=== PATIENT | male | born 1980 | race Caucasian/White ===

== ENCOUNTER 2024-10-24 11:22 | Emergency (ER) | payer BC, SELFPAY ==
--- OUTSIDE RECORDS SUMMARY | 2024-10-24 11:24 | XMS_ITS | Data Portability ---
Author Organization [place] - [facility], autoContract - [facility] Address [address] [place] [address] Assessment Encounter Date Assessment Date Assessment LastModified by Organization Details LastModified Time 07/09/2024 07/09/2024 ASSESSMENT: Patient is a good candidate for conservative care and the prognosis is for a favorable outcome that achieves the patients' goals. We discussed etiology, activity modifications, home care, and other treatment options. Initially, it is recommended that the patient receive in-office treatment 1 times per week for 8 weeks at which time a re-evaluation will be performed to determine an appropriate change in plan. Initially, treatment will focus on joint manipulation to restore range of motion and reduce pain. We will slowly progress to therapeutic exercises and activities to improve function, strength, and stability may also be used as warranted. If the patient is not responding as expected, more invasive procedures will be discussed along with a referral. All considerations above were discussed with the patient and questions answered to satisfaction. If the patient should have any additional questions, or should the condition evolve or worsen, the patient should not hesitate to contact our office. [email or web address] Not available 07/09/2024 13:45:54 07/14/2024 07/14/2024 ASSESSMENT: Patient is a good candidate for conservative care and the prognosis is for a favorable outcome that achieves the patients' goals. We discussed etiology, activity modifications, home care, and other treatment options. Initially, it is recommended that the patient receive in-office treatment 1 times per week for 8 weeks at which time a re-evaluation will be performed to determine an appropriate change in plan. Initially, treatment will focus on joint manipulation to restore range of motion and reduce pain. We will slowly progress to therapeutic exercises and activities to improve function, strength, and stability may also be used as warranted. If the patient is not responding as expected, more invasive procedures will be discussed along with a referral. All considerations above were discussed with the patient and questions answered to satisfaction. If the patient should have any additional questions, or should the condition evolve or worsen, the patient should not hesitate to contact our office. segundo Not available 07/14/2024 13:07:56 07/16/2024 07/16/2024 ASSESSMENT: Patient is a good candidate for conservative care and the prognosis is for a favorable outcome that achieves the patients' goals. We discussed etiology, activity modifications, home care, and other treatment options. Initially, it is recommended that the patient receive in-office treatment 1 times per week for 8 weeks at which time a re-evaluation will be performed to determine an appropriate change in plan. Initially, treatment will focus on joint manipulation to restore range of motion and reduce pain. We will slowly progress to therapeutic exercises and activities to improve function, strength, and stability may also be used as warranted. If the patient is not responding as expected, more invasive procedures will be discussed along with a referral. All considerations above were discussed with the patient and questions answered to satisfaction. If the patient should have any additional questions, or should the condition evolve or worsen, the patient should not hesitate to contact our office. [email or web address] Not available 07/16/2024 12:59:04 07/21/2024 07/21/2024 ASSESSMENT: Patient is a good candidate for conservative care and the prognosis is for a favorable outcome that achieves the patients' goals. We discussed etiology, activity modifications, home care, and other treatment options. Initially, it is recommended that the patient receive in-office treatment 1 times per week for 8 weeks at which time a re-evaluation will be performed to determine an appropriate change in plan. Initially, treatment will focus on joint manipulation to restore range of motion and reduce pain. We will slowly progress to therapeutic exercises and activities to improve function, strength, and stability may also be used as warranted. If the patient is not responding as expected, more invasive procedures will be discussed along with a referral. All considerations above were discussed with the patient and questions answered to satisfaction. If the patient should have any additional questions, or should the condition evolve or worsen, the patient should not hesitate to contact our office. [email or web address] Not available 07/21/2024 15:30:28 07/26/2024 07/26/2024 ASSESSMENT: Patient is a good candidate for conservative care and the prognosis is for a favorable outcome that achieves the patients' goals. We discussed etiology, activity modifications, home care, and other treatment options. Initially, it is recommended that the patient receive in-office treatment 1 times per week for 8 weeks at which time a re-evaluation will be performed to determine an appropriate change in plan. Initially, treatment will focus on joint manipulation to restore range of motion and reduce pain. We will slowly progress to therapeutic exercises and activities to improve function, strength, and stability may also be used as warranted. If the patient is not responding as expected, more invasive procedures will be discussed along with a referral. All considerations above were discussed with the patient and questions answered to satisfaction. If the patient should have any additional questions, or should the condition evolve or worsen, the patient should not hesitate to contact our office. [email or web address] Not available 07/26/2024 16:06:29 Plan of Treatment Reminders Order Date Submit Date Provider Last Modified By Organization Details Last Modified Time Details Appointments None recorded. Lab None recorded. Referral None recorded. Procedures None recorded. Surgeries None recorded. Imaging MRI, lumbar spine, w/o contrast 2023 024 [email or web address] Not available 4 14:12:46 XR, lumbosacral spine, 2 or 3 view 2023 024 [email or web address] Not available 4 14:12:46 MRI, lumbar spine, w/o contrast 2023 024 [email or web address] Not available 4 14:12:46 Medication Orders None recorded. Patient TargetsNo targets recorded. Patient InstructionsNo instructions recorded. Reason for Referral None Reported. Problems Name Problem SNOMED Code Status Onset Date Resolution Date Notes Provider Name and Address Organization Details Recorded Time Lumbar radiculopat hy 799896536 Active 2023 [facility] Zbigniew Michelle [place] [address], [place], [address], [facility] 4 10:44:06 Thoracic segmental dysfunction 567374266 Active 2023 [facility] Zbigniew Michelle NH [address], [place], [address], [place] [facility] 4 10:44:06 Lumbar segmental dysfunction 113797976 Active 2023 Sadi MichelleBLAINE, [place] [address], [place], [address], [place] [facility] 4 10:44:06 Somatic dysfunction of sacral spine 837182255 Active 2023 Sadi GurrolaTurney, [place] [address], [place], [address], [place] [facility] 4 10:44:06 Disorder of lumbar spine 505262515 Active 2023 [facility] Zbigniew [address], [place], [address], [place] [facility] 4 10:44:07 Lesion of lumbar spine 421273378 Active 2023 Sadi Coy [address], [place], [address], [place] [facility] 4 10:44:07 Spasm of muscle of lower back 7327207139921 9105 Active 2023 [facility] Zbigniew [address], [place], [address], [place] [facility] 4 10:44:07 Low back strain 866405611 Active 2023 [facility] Zbigniew Gurrola[address], [place], [address], [place] [facility] 4 10:44:10 Neck pain 06307385 Active [address], [place], [address], [place] [facility] 4 12:43:57 Low back pain 965862129 Active 2023 Mulugeta Beth, [address], [place], [address], [facility] 4 13:07:56 Problem Notes None recorded. Procedures Surgical History Date Name Laterality Status Provider Name and Address Organization Details Recorded Time 4 46291: Spinal manipulation , 3 to 4 regions completed Radhames Hurd [place] [address], [place], [address], [facility] 07/26/2024 16:06:28 4 71497: Spinal manipulation , 3 to 4 regions completed Sadi Michelle NH [address], [place], [address], [facility] 07/21/2024 15:30:28 4 73189: Spinal manipulation , 3 to 4 regions completed Radhames Hurd NH [address], [place], [address], [facility] 07/16/2024 12:59:29 4 38027: Spinal manipulation , 3 to 4 regions completed Mulugeta Beth NH [address], [place], [address], [facility] 07/14/2024 13:08:32 4 83187: Spinal manipulation , 3 to 4 regions completed Radhames Hurd [place] [address], [place], [address], [facility] 07/09/2024 13:45:54 4 01322: Spinal manipulation , 3 to 4 regions completed Sadi Zbigniew Viviana NH [address], [place], [address], [facility] 07/06/2024 12:09:56 Imaging Results None recorded. Procedure Notes None recorded. Medical Equipment None Reported. Medications Name Sig Start Date Stop Date Status Note LastModified by Organization Details LastModified Time azithromycin 250 mg tablet active Not Available Not Availabl e Not Available benzonatate 200 mg capsule active Not Available Not Availab le Not Available amoxicillin 500 mg tablet active Not Available Not Availabl e Not Available Vitals None Recorded Social History None recorded. Functional Status None recorded. Mental Status None recorded. Family History Nothing Reported. Medical History No medical history recorded. Past Encounters Encounter ID Performer Location Encounter Start Date Encounter Closed Date Diagnosis/Indication Diagnosis SNOMED-CT Code Diagnosis ICD10 Code Diagnosis Note [id number] Sadi Michelle DC [facility] & [address] [place] [address] 07/06/2024 10:40:57 07/06/2024 15:45:05 Somatic dysfunction of sacral spine 952452323 M99.04 Lumbar radiculopathy 128 804205 M54.16 Lumbar seg mental dysfunction 871401487 M99.03 Thoracic s egmental dysfunction 335457859 M99.02 Spasm of m uscle of lower back 5388701652 6350323 M62.830 [id number] Radhames Hurd DC [address] [place] [address] 07/09/2024 10:14:23 07/09/2024 14:12:45 Somatic dysfunction of sacral spine 090522921 M99.04 Lumbar seg mental dysfunction 714197476 M99.03 Thoracic s egmental dysfunction 772807896 M99.02 Spasm of m uscle of lower back 3629338155 0939053 M62.830 Lumbar radiculopathy 128 930910 M54.16 [id number] Mulugeta Beth DC [facility] & [address] [place] [address] 07/14/2024 12:57:50 07/14/2024 13:27:39 Lumbar segmental dysfunction 071492203 M99.03 Low back pain 671297105 M54.50 Somatic dy sfunction of sacral spine 052863463 M99.04 Thoracic s egmental dysfunction 506056489 M99.02 [id number] Radhames Hurd DC [facility] & [address] [place] [address] 07/16/2024 12:48:25 07/16/2024 13:07:12 Lumbar segmental dysfunction 953624160 M99.03 Low back pain 728836085 M54.50 Somatic dy sfunction of sacral spine 695368073 M99.04 Thoracic s egmental dysfunction 265298725 M99.02 [id number] Sadi Michelle DC [facility] [address] [facility] [address] 07/21/2024 14:54:18 07/21/2024 16:07:05 Lumbar segmental dysfunction 846412599 M99.03 Low back pain 061323911 M54.50 Somatic dy sfunction of sacral spine 975879636 M99.04 Thoracic s egmental dysfunction 371572542 M99.02 [id number] Radhames Hurd DC [facility] [address] [place] [address] 07/26/2024 15:58:42 07/26/2024 16:08:57 Lumbar segmental dysfunction 610287107 M99.03 Low back pain 244138162 M54.50 Somatic dy sfunction of sacral spine 861117090 M99.04 Thoracic s egmental dysfunction 787058942 M99.02 Health Concerns Section Related Observation LastModified by Organization Detai ls LastModified Time None Recorded Concern Status LastModified by Organization Details LastModified Time None Recorded Advance Directives Directive None Recorded Payers Encounter Date Sequence Insurance Name Policy Number Policy Ortega Covered Member ID Ortega Member ID Guarantor Name 07/09/2024 1 [employer] Shari Prisca [id number] [place] 07/14/2024 1 [employer] Shari Prisca [id number] [place] 07/16/2024 1 [employer] [place]ari [place] [id number] [place] 07/21/2024 1 [employer] Shari Prisca [id number] Jordy [place] 07/26/2024 1 [employer] Shari Prisca [id number] Jordy Prisca Notes Date Note Type Note Provider Name and Address Organization Details Recorded Time 07/09/2024 text/html HPI - Lumbar SpineReported bypatient.Location: left; With radiation to knee Quality:aching Severity:improving Timing:morning Aggravating Factors:standing Alleviating Factors:ice Radhames Hurd DC [address], [place], [address], [facility] 07/09/2024 14:00:40 07/14/2024 text/html HPI - Lumbar SpineReported bypatient.Location: left; With radiation to knee Quality:aching Severity:not changing Timing:morning Aggravating Factors:standing Alleviating Factors:ice Mulugeta Hallman Kirit, PHIL [address], [place], [address], [facility] 07/14/2024 13:09:02 07/16/2024 text/html HPI - Lumbar SpineReported bypatient.Location: left; With radiation to knee Quality:aching Severity:not changing Timing:morning Aggravating Factors:standing Alleviating Factors:ice Radhames Lloyd Hurd DC [address], [place], [address], [facility] 07/16/2024 12:59:53 07/21/2024 text/html HPI - Lumbar SpineReported bypatient.Location: left; with radiation to:; Radiates to his back. Quality:aching Severity:not changing Timing:morning Aggravating Factors:standing Alleviating Factors:ice Patient presents for continual care of his left hip pain that radiates into his back. Sadi Zbigniew Viviana, PHIL [address], [place], [address], [facility] 07/21/2024 15:31:56 07/26/2024 text/html HPI - Lumbar SpineReported bypatient.Location: left; with radiation to:; Radiates to his back. Quality:aching Severity:not changing Timing:morning Aggravating Factors:standing Alleviating Factors:ice Patient presents for continual care of his left hip pain that radiates into his back. Radhames Hurd DC [address], [place], [address], [facility] 07/26/2024 16:06:58
[2024-10-24 11:26] VITALS: BP 120/79; PULSE 115; RESP 16; TEMP 36.1; O2SAT 95; BMI 27.2
--- NOTE | 2024-10-24 11:31 | ED_ITS ---
HPI - General Adult General Date Seen: 10/24/24 Chief complaint: Cough Stated complaint: fever/bodyaches/SOB Time Seen by Provider: 10/24/24 11:23 History of Present Illness HPI narrative: 44 yo M presents to the ER today with concern for fever, chills, body ache cough. He began to get sick Friday, 6 days ago with fever and body aches. Beginning a couple of days ago he also had having worsening cough with coughing fits and trouble breathing. He had a virtual visit on Friday and was told that he probably had influenza. Symptoms started last Friday with body aches and leg ache and fatigue. He was generally feeling achy and run down in feverish Friday, Friday, Friday. He also had a fairly bad headache and 1 episode of vomiting Friday. No diarrhea. On started to feel perhaps marginally better but Friday got worse again and also developed cough. Cough has been largely nonproductive but occasionally productive of some pink tinged sputum. Temperatures have been running up and down but as high as 102.7. He had a nosebleed on Friday which he thinks is what caused the pink tinge. He had a virtual visit on Friday with a clinic through [facility] and was diagnosed empirically with influenza. Since he was outside the 48 hour window he was not prescribed any Tamiflu. He was told to come to the doctor if he had worsening trouble breathing or chest pain. His cough persisted through the weekend this morning he had more episodes of bad coughing spells,. In particular he had a bad coughing spell walking up the steps that made him short of breath. His noted that he looked pasty and that he is breathing rapidly. He did have sweats and chills overnight but does not have an objective fever this morning. He has no history of diabetes or immunosuppression. He has no history of asthma or lung disease. He is a nonsmoker. Per medical record he has a history of a left lower lobe pneumonia. He had been seen in the urgent care last June with a several day history of cough and body aches. Chest x-ray showed abnormal retrocardiac airspace opacities, concerning for focal consolidation and/or atelectasis. Related Data Previous Rx's ?Medication ?Instructions ?Recorded benzonatate 100 mg capsule 100 mg PO TID PRN cough #14 caps 10/24/24 doxycycline monohydrate 100 mg 100 mg PO BID #14 caps 10/24/24 capsule Allergies Allergy/AdvReac Type Severity Reaction Status Date / Time No Known Drug Allergies Allergy Verified 06/25/24 12:26 [facility] Social History Smoking Status: Never smoker How often do you have a drink containing alcohol: 2-4 times a month How many standard drinks containing alcohol do you have on a typical day: 1 or 2 AUDIT-C Alcohol total score: 2 Non-prescribed substance use: denies use service: No Exam Narrative: Exam Narrative: Constitutional: Appears well-developed and well-nourished. Alert. Conversant. Non toxic. Speaks full sentences. Breathing easily. HENT: Head: Atraumatic. Right ear: Mastoid, pinna, canal normal. Canal is filled with cerumen but I am able to see part of the TM, which looks normal Left ear: Mastoid, pinna, canal normal say for cerumen in the canal. Part of the TM is obscured by cerumen but visualized portion of the TM is normal Nose: Nose normal. Mouth/Throat: Oral mucosa is clear and moist. no trismus. Pharynx normal. Tonsils symmetric. No tonsillar enlargement, erythema, or exudate. Eyes: Conjunctivae normal. EOM normal. Pupils equal, round, and reactive to light. No scleral icterus. Neck: Normal range of motion. Neck supple. No tracheal deviation present. Cardiovascular: Normal rate, regular rhythm. No gallop. No friction rub. No murmur heard. Symmetric radial artery pulses Pulmonary/Chest: Effort normal. No stridor. Occasional nonproductive cough No respiratory distress. No wheezes. No rales. No rhonchi . No tenderness. Abdominal: Soft.No distension. No mass. No tenderness. No rebound. No guarding. Musculoskeletal: RUE: Normal range of motion. No tenderness. No deformity LUE: Normal range of motion. No tenderness. No deformity RLE: Normal range of motion. No edema. No tenderness. No deformity LLE: Normal range of motion. No edema. No tenderness. No deformity Lymph: No cervical adenopathy. Neurological: Alert and oriented to person, place, and time. Normal strength. CN II-VII intact. No sensory deficit. GCS eye subscore is 4. GCS verbal subscore is 5. GCS motor subscore is 6. Normal coordination Skin: Skin is warm and dry. No rash noted. No pallor. Normal capillary refill. Psychiatric: Normal mood. Normal affect. Const: Vital Signs, click to edit/add: Vital Signs - 24 hr 10/24/24 11:26 Temperature 96.9 F L Pulse Rate [Pulse Oximeter] 115 H Respiratory Rate 16 Blood Pressure [Ri t Upper Arm] 120/79 Pulse Oximetry 95 Oxygen Delivery Me thod Room Air Course Course ED Course: [id number] back and shows a right upper lobe pneumonia. Patient sitting up in bed breathing easily, drinking water. No complaints. No respiratory distress. I listened to his lungs again I still do not hear any obvious rales or wheezes or rhonchi in the right upper lobe, despite radiographic findings. Nonetheless with clinical presentation will treat for community-acquired pneumonia. Vital Signs Vital signs: Initial Vital Signs Temperature 96.9 F L 10/24/24 11:26 Temperature Source Temporal Artery Scan 10/24/24 11:26 Pulse Rate 115 H 10/24/24 11:26 Respiratory Rate 16 10/24/24 11:26 Blood Pressure 120/79 10/24/24 11:26 Blood Pressure Mean 92 10/24/24 11:26 Blood Pressure Position Sitting 10/24/24 11:26 Pulse Oximetry 95 10/24/24 11:26 Oxygen Delivery Method Room Air 10/24/24 11:26 Vital Signs Temperature 96.9 F L 10/24/24 11:26 Pulse Rate 115 H 10/24/24 11:26 Respiratory Rate 16 10/24/24 11:26 Blood Pressure 120/79 10/24/24 11:26 Pulse Oximetry 95 10/24/24 11:26 Oxygen Delivery Method Room Air 10/24/24 11:26 Temperature 96.9 F L 10/24/24 11:26 Pulse Rate 115 H 10/24/24 11:26 Respiratory Rate 16 10/24/24 11:26 Blood Pressure 120/79 10/24/24 11:26 Pulse Oximetry 95 10/24/24 11:26 Oxygen Delivery Method Room Air 10/24/24 11:26 Medical Decision Making MDM Narrative Medical decision making narrative: This patient presents for evaluation of cough, trouble breathing associated with fever, chills, body aches. He is on day 6 of illness and feels as though his breathing is getting worse today rather than better.. This is consistent with an upper respiratory tract infection. He has already evaluated with a virtual visit diagnosed empirically with influenza. Certainly symptoms could be consistent with influenza. However, Viral testing is negative for influenza, RSV, coronavirus.. There is no signs at this point of serious bacterial infec tion such as OM, RPA, epiglottitis, [employer], strep pharyngitis, sinusitis, meningitis, bacteremia, serious bacterial infection. He is not hypoxic. Blood pressure is stable. No evidence for septic shock. He was mildly tachycardic in triage by heart rate normalized once he was resting in bed. Suspect there is some component of dehydration. However he is tolerating oral intake and has not had any vomiting since Friday. At this point I do not think he needs IV fluids or bolus. Given worsening cough and shortness of breath today we did obtain a chest x-ray. It does show an obvious right upper lobe infiltrate. Will treat for community-acquired pneumonia. Curiously, I really do not appreciate clinical findings of rales and rhonchi in the right upper lobe. Nonetheless, this is the easily apparent radiographic pneumonia and we will treat. Close followup with primary care physician is indicated. Discussed precautions for return to the ER if he is not improving within the next 48 hours or 72. Also need for follow-up chest x-ray in 2-3 weeks per Return to ED for fever > 103, worsening trouble breathing, low oxygen level, repetitive vomiting, confusion, or other worsening. Lab Data Labs: Lab Results 10/24/24 Range/Units 11:55 SARS-CoV-2 (PCR) Negative SARS-CoV-2 (Negative) Influenza Type A (PCR) Negative PCR FLU A (Negative) Influenza Type B (PCR) Negative PCR FLU B (Negative) RSV (PCR) Negative PCR RSV (Negative) Imaging Data Chest x-ray: Attestation: I have reviewed the pertinent imaging results. My impression: RUL infiltrate Radiologist's impression: IMPRESSION: Right upper lobe pneumonia. Radiographic followup to resolution is recommended. Discharge Plan Discharge Clinical Impression: Pneumonia involving right lung Patient Disposition: Home, Self-Care Condition: Stable Instructions: Community Acquired Pneumonia (DC) Additional Instructions: As we discussed your chest x-ray shows signs that you have pneumonia in your right upper lung. We will treat your pneumonia with a course of antibiotics- doxycycline. While you are on doxycycline avoid sun exposure because doxycycline can cause a photosensitive rash. Monitor symptoms carefully. If you have worse trouble breathing, oxygen levels below 90%, worsening weakness, high fevers, or other worsening symptoms, please return to the ER right away. It typically takes 2-3 days for infection to start to get better after starting on antibiotics. If you are not substantially improved by Friday, please recheck with her doctor or come back to the ER for a recheck At the with with even after you get better, please arrange with either visit with her doctor for a 2-3 weeks to have a repeat chest x-ray. Prescriptions: New doxycycline monohydrate 100 mg capsule 100 mg PO BID Qty: 14 0RF benzonatate 100 mg capsule 100 mg PO TID PRN (Reason: cough) Qty: 14 0RF Follow Up/Referrals: Mike Ashley MD [Primary Care Provider] - Stand Alone Forms: Work/School Release, [employer] Info Instructions
--- NOTE | 2024-10-24 11:53 | CRLHL7_ITS ---
For Patients: As a result of the Century Cures Act, medical imaging exams and procedure reports are released immediately into your electronic medical record. You may view this report before your referring provider. If you have questions, please contact your health care provider. INDICATION: Fever, cough and shortness of breath. TECHNIQUE: Chest PA and lateral. COMPARISON: 06/25/2024. FINDINGS: There is an extensive alveolar infiltrate within the upper lobe of the right lung consistent with pneumonia. The left lung is clear. The heart is normal in size. The pulmonary vasculature and pleural surfaces appear normal. The bony thorax appears intact. IMPRESSION: Right upper lobe pneumonia. Radiographic followup to resolution is recommended. Dictated by Colby Rodriguez MD @ 10/24/2024 12:25:49 PM (Electronically Signed)
[2024-10-24 12:39] LABS: PCR FLU A Negative PCR FLU A (Negative); PCR FLU B Negative PCR FLU B (Negative); PCR RSV Negative PCR RSV (Negative); SARS PCR* Negative SARS-CoV-2 (Negative)
== END 2024-10-24 13:01 | disposition home or self-care (01) ==
PROVIDERS: Emergency Provider Emergency Medicine; PCP Family Medicine
DX: J18.9 Pneumonia, unspecified organism (principal)
CPT/HCPCS: 71046; 87631; 99282; 99283